=== PATIENT | female | born 1975 | race Caucasian/White ===

== ENCOUNTER 2019-06-19 09:30 | Outpatient (CLI) | payer OTHER ==
--- NOTE | 2019-06-19 10:47 | MMO ---
Left Breast MAMMO Unilat Diag DDI LT+PIETRO. CLINICAL HISTORY: Patient is 43 years old and is seen for diagnostic exam. The patient has the following family history of breast cancer: maternal grandmother. The patient has no personal history of cancer. VIEWS: The views performed were: left craniocaudal with tomosynthesis; left craniocaudal spot compression with tomosynthesis; left mediolateral oblique with tomosynthesis; left mediolateral oblique spot compression with tomosynthesis; left mediolateral with tomosynthesis; and left exaggerated craniocaudal with tomosynthesis. FILMS COMPARED: The present examination has been compared to prior imaging studies performed at [facility] on 05/30/2019, and at [facility] on 06/19/2019. This study has been interpreted with the assistance of computer-aided detection. MAMMOGRAM FINDINGS: The breast is heterogeneously dense, which could obscure a lesion on mammography. Additional views were performed. The previously seen abnormality is not definitely seen on the current study. US is negative. There are no suspicious masses, suspicious calcifications, or new areas of architectural distortion. IMPRESSION: THERE IS NO MAMMOGRAPHIC EVIDENCE OF MALIGNANCY. A ROUTINE FOLLOW-UP MAMMOGRAM IN 1 YEAR IS RECOMMENDED. THE RESULTS OF THIS EXAM WERE SENT TO THE PATIENT. ACR BI-RADS Category 2 - Benign finding MAMMOGRAPHY NOTE: 1. A negative mammogram report should not delay a biopsy if a dominant of clinically suspicious mass is present. 2. Approximately 10% to 15% of breast cancers are not detected by mammography. 3. Adenosis and dense breasts may obscure an underlying neoplasm. Reported by: AMBER CHANG MD Electonically Signed: [id number]
--- NOTE | 2019-06-19 11:02 | ULT ---
LIMITED LEFT BREAST ULTRASOUND: HISTORY: Abnormal mammogram. COMPARISON: Mammograms from 05/30/2019 and 06/19/2019. FINDINGS: Sonographic evaluation of the left upper inner breast demonstrates no abnormality. IMPRESSION: BI-RADS category 2 - benign findings. Return to annual mammographic screening. POS: OFF
== END 2019-06-19 09:31 | disposition home or self-care (01) ==
LOC: BICMAMMO 09:30
PROVIDERS: ATTEND Obstetrics & Gynecology
DX: N63.20 Unspecified lump in the left breast, unspecified quadrant (principal)
CPT/HCPCS: G0279